=== PATIENT | male | born 1950 | race Caucasian/White ===

== ENCOUNTER 2016-12-07 14:05 | Outpatient (CLI) ==
--- NOTE | 2016-12-07 14:40 | DI ---
EXAM: Three views of the left knee. History: Left knee pain. Findings: No acute fracture or dislocation. Joint spaces are relatively preserved. No radiopaque f oreign bodies. Impression: No acute osseous abnormality and no degenerative joint disease.
== END 2016-12-07 14:06 | disposition home or self-care (01) ==
LOC: RAD 14:05
PROVIDERS: ATTEND Family Medicine
DX: M25.562 Pain in left knee (principal)

== ENCOUNTER 2018-08-26 12:37 | Outpatient (CLI) ==
--- NOTE | 2018-08-26 13:18 | DI ---
EXAM: Two views of the chest. History: Follow-up right upper lobe pneumonia Comparison: Chest radiograph 08/15/2018 Findings: Heart size is normal. Hiatal hernia. The right upper lobe consolidation is stable to sli ghtly increased compared to the prior study. No pleural fluid and no pneumothorax. No acute osseous abnormalities. Impression: Stable to slightly increased right upper lobe consolidation. Recommend further evaluati on with contrast enhanced chest CT.
== END 2018-08-26 12:38 | disposition home or self-care (01) ==
LOC: RAD 12:37
PROVIDERS: ATTEND Family Medicine
DX: J18.1 Lobar pneumonia, unspecified organism (principal)